=== PATIENT | male | born 1980 ===

== ENCOUNTER 2018-06-15 16:22 | Inpatient (IN) | payer OTHER, SELFPAY ==
[~2018-06-15 16:22] MED LIST: Calcium Chloride 1 GM/10 ML Abboject SYRINGE ONE; ISOVUE-370 76%-LOCM 1 ML ONE; PHENYLEPHRINE-NS 100 MCG/ML 10 ML SYRINGE ONE; Rocuronium Bromide 10 MG/ML (10ML VIAL) ONE; Sodium Bicarb 50 MEQ/50 ML VIAL ONE; ePHEDrine/0.9% NaCl/PF SYRINGE 50 mg/10 ml ONE
[2018-06-15] MEDS ORDERED: Fentanyl 100 MCG/2 ML VIAL ONE ×2 (16:33→18:50)
[2018-06-15] MEDS ORDERED: fentaNYL Citrate/PF 2,000 MCG in Sodium Chloride 0.9% 60 ML IV SCH ×2 (16:36→20:26)
[2018-06-15 16:43] LABS: Hemoglobin 13.4 g/dL (14.0-18.0); Mean Corpuscular HGB CONC 33.4 g/dL (32.0-36.0); Mean Corpuscular Hemoglobin 29.5 pg (27.0-31.0); Mean Corpuscular Volume 88.5 fL (78.0-98.0); Mean Platelet Volume 7.8 fL (7.4-10.4); Platelet Count 282 thou/uL (130-400); RBC Distribution Width 11.9 % (11.5-14.5); Red Blood Cell (RBC) Count 4.54 mill/uL (4.70-6.10); White Blood Cell (WBC) Count 25.3 thou/uL (4.8-10.8)
[2018-06-15 16:45] LABS: Actual Bicarbonate (HCO3a) 15.2 mEq/L (22-28); Analyzer IN Cardio ER; Calcium, Ionized 1.07 mmol/L (1.12-1.30); Carboxyhemoglobin (COHb) 0.3 gm% (0.0-3.0); Hemoglobin (Hb) 13.4 g/dL (14.0-18.0); O2 Tension (PaO2) 464.5 mmHg (80.0-100.0); Potassium - ABG Lab 4.53 mmol/L (3.70-5.30)
[2018-06-15 16:46] LABS: Puncture Site LFA; pH, Arterial 7.17 (7.35-7.45)
[2018-06-15 16:51] LABS: INR-International Normal Ratio 1.1; PTT 26.6 SEC (22.9-36.1); Prothrombin Time 14.4 SEC (12.0-14.7)
[2018-06-15 17:01] LABS: Band 21 % (5-11); Lymphocytes 16 % (21-51); MDiff Complete? YES; Monocytes 4 % (0-10); Neutrophil 57 % (42-75); Platelet Morphology Comment Appears Adequate; RBC Morphology Normal; Reactive Lymphocytes 2 % (0-10)
[2018-06-15 17:17] LABS: Bilirubin Negative (Negative); Blood, Urine Large (Negative); Clarity CLOUDY (Clear); Glucose, Urine (Dipstick) 100 mg/dL (Negative); Leukocyte Negative (Negative); Nitrite Negative (Negative); Protein, Urine (Dipstick) 100 mg/dL (Neg-Trace); Specific Gravity, Urine 1.015 (1.002-1.036)
[2018-06-15 17:18] LABS: Bacteria/HPF None Seen HPF (None Seen); RBC/HPF GREATER THAN 50-TNTC HPF (0-3)
[2018-06-15 17:20] LABS: ALT (SGPT) 194 U/L (8-55); AST (SGOT) 198 U/L (5-34); Albumin 3.9 g/dL (3.5-5.0); Alkaline Phosphatase 53 U/L (40-150); Anion Gap 19 mmol/L (10-20); BUN (Urea Nitrogen) 19 mg/dL (8.9-20.6); Bilirubin, Total 0.5 mg/dL (0.2-1.2); Calc. Creatinine Clearance 0 mL/min (70-130); Calcium 8.5 mg/dL (7.8-10.44); Carbon Dioxide 19 mmol/L (22-29); Chloride 106 mmol/L (98-107); Estimated GFR-MDRD 50; Globulin 2.4 g/dL (2.4-3.5); Glucose 234 mg/dL (70-105); Potassium 3.5 mmol/L (3.5-5.1); Protein, Total 6.3 g/dL (6.0-8.3); Sodium 140 mmol/L (136-145)
[2018-06-15 17:22] LABS: Pathc Cast-AUWi Flag 3.05 (0-2.49)
[2018-06-15 17:25] LABS: Amphetamine Not Detected (NotDetected); Barbiturates Screen Not Detected (NotDetected); Benzodiazepine Screen Not Detected (NotDetected); Cocaine Metabolite Screen Not Detected (NotDetected); Medtox Control Line Valid? VALID (VALID); Medtox Reader # READER 1; Methadone Not Detected (NotDetected); Methamphetamine Not Detected (NotDetected); Opiate Screen Not Detected (NotDetected); Oxycodone Screen Not Detected (NotDetected); Phencyclidine (PCP) Not Detected (NotDetected); THC/Cannabinoid Screen Detected (NotDetected); Tricyclic Screen Not Detected (NotDetected)
[2018-06-15 17:26] LABS: Crystals/HPF 1+ AMORPH PHOS HPF (Negative); Hyaline Casts/LPF 0-3 HYALINE CAST LPF (0-3 Hyaline); Other Casts/LPF None Seen LPF (0-3 Hyaline)
[2018-06-15] MEDS ORDERED: CEFAZOLIN 2 GM/50 ML BAG ONE (17:37)
[2018-06-15] MEDS ORDERED: Adacel (T-DAP) 0.5 ML SYRINGE ONE (17:37)
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
[2018-06-15 18:26] LABS: Lactic Acid 5.6 mmol/L (0.5-2.2)
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
[2018-06-15] MEDS ORDERED: Norepinephrine 8 MG/0.9% NS 0 ML ONE (18:50)
[2018-06-15] MEDS ORDERED: Phenylephrine HCL 10 MG/ML VIAL ONE ×2 (18:50→22:05)
[2018-06-15] MEDS ORDERED: Heparin 10,000 UNITS/1 ML VIAL ONE (19:01)
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
[2018-06-15] MEDS ORDERED: Heparin 5,000 UNITS/ML VIAL ONE (19:28)
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
--- NOTE | 2018-06-15 19:56 | RAD ---
PORTABLE UPRIGHT FRONTAL CHEST RADIOGRAPH: Date: 06-15-18 at 5:11 p.m. Comparison: 06-15-18 at 3:33 p.m. History: Evaluate chest tube. FINDINGS: Supine imaging limits assessment for free air, pneumothorax, and pleural fluid. The lung apices are n ot fully imaged on this exam. There is a left sided chest tube seen along the inferior aspect of the left hemithorax extending medi ally to overlying the left hilar shadow. Incompletely imaged vascular catheter is present on the righ t. Nasogastric tube seen in left upper quadrant. Please refer to recent CT examination of the chest for assessment of the osseous structures, which in cludes left sided 6th, 7th, 8th, and 9th rib fractures. IMPRESSION: Incomplete visualization of the lung apices. Lines and tubes as detailed above. POS: [facility]
[2018-06-15] MEDS ORDERED: Midazolam HCl 5 mg/5 ml Vial ONE (20:07)
[2018-06-15] MEDS ORDERED: Rib Fracture Protocol IV SCH (20:22)
[2018-06-15] MEDS ORDERED: Dextrose 5% in Water 1,000 ML IV PRN (20:22)
[2018-06-15] MEDS ORDERED: Ondansetron ODT 4 MG TAB PO PRN (20:22)
[2018-06-15] MEDS ORDERED: hydrALAZINE 20 MG/ML VIAL SLOW IVP PRN (20:22)
[2018-06-15] MEDS ORDERED: Ventilator Sedation Protocol 1 EACH FS SCH (20:22)
[2018-06-15] MEDS ORDERED: Sodium Chloride 0.9% 1,000 ML IV SCH (20:22)
[2018-06-15] MEDS ORDERED: Dextrose 50% Abboject 50 ML SYRINGE SLOW IVP PRN (20:22)
[2018-06-15] MEDS ORDERED: Ondansetron PF 4 MG/2 ML Vial IVP PRN (20:22)
[2018-06-15] MEDS ORDERED: Morphine 2 MG/ML SYRINGE SLOW IVP PRN (20:26)
[2018-06-15] MEDS ORDERED: DISCONTINUE PREVIOUS NARCOTIC PAIN MEDICATIONS AND BENZODIAZEPINES FS SCH (20:26)
[2018-06-15] MEDS ORDERED: Fentanyl BOLUS 250 ML IVPB PRN (20:26)
[2018-06-15] MEDS ORDERED: Propofol 1,000 MG/100 ML VIAL IV PRN (20:26)
[2018-06-15] MEDS ORDERED: Propofol BOLUS 1,000 MG/100 ML VIAL IV PRN (20:26)
[2018-06-15] MEDS ORDERED: Lorazepam 2 MG/ML VIAL SLOW IVP PRN (20:26)
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
[2018-06-15] MEDS ORDERED: Famotidine/PF 20 mg/2ml Vial SLOW IVP SCH (21:00)
--- NOTE | 2018-06-15 21:50 | RAD ---
RIGHT HUMERUS TWO VIEWS: Date: 06-15-18 Comparison: None. History: Injury, trauma, pain. FINDINGS: No displaced humerus fracture is seen on the right. The right shoulder and right elbow joints are not fully assessed. IMPRESSION: No displaced fracture. POS: [facility]
[2018-06-15] MEDS ORDERED: Papaverine 60 MG/2 ML VIAL ONE (21:57)
--- NOTE | 2018-06-15 22:07 | RAD ---
TWO VIEWS LEFT HUMERUS: Date: 06-15-18 Comparison: None. History: Injury, trauma, pain. FINDINGS: There is prominent soft tissue swelling in the left upper extremity and left axillary region. There i s a transverse fracture of the proximal left humeral shaft with 5 cm of lateral displacement of the d istal fracture fragment. IMPRESSION: Displaced proximal left humeral shaft fracture with prominent associated soft tissue swelling. POS: [facility]
--- NOTE | 2018-06-15 22:09 | RAD ---
TWO VIEWS LEFT SHOULDER: Date: 06-15-18 Comparison: None. History: Injury, trauma, pain. FINDINGS: There is a comminuted fracture in the region of the acromion. There is a fracture involving the scapu la in the region of the inferior glenoid. There is a displaced proximal humeral shaft fracture. Incom pletely imaged endotracheal tube and nasogastric tube. Please refer to CT examination of the chest al so performed 06-15-18 for full assessment. IMPRESSION: Multiple fracture deformities as detailed above, better assessed on recent CT exam. POS: [facility]
[2018-06-15] MEDS ORDERED: Rocuronium Bromide 50 MG/5 ML VIAL ONE (22:36)
--- NOTE | 2018-06-15 22:44 | OP ---
DATE OF PROCEDURE: 06/15/2018 PROCEDURE PERFORMED: Left chest tube thoracostomy. INDICATIONS: Left pneumothorax. DESCRIPTION OF PROCEDURE: After appropriate time-out, the patient was identified. The left chest was properly prepped and draped. The patient was on mechanical ventilator, sedated, so local was not necessary. Fifth intercostal space was identified in the anterior axillary line. Incision was made with a #10 blade, blunt dissection down to the pleural space, which was then entered. There was a moderate size ryan of air, at which time, a 32-Liberian tube was placed into the tunnel created, it was sutured in place with a 1-0 U-shaped suture secured with a petroleum gauze and taped in place, it was connected to suction and there was no noted air leak. The chest tube placement was then confirmed with chest radiograph that showed in a good position. The patient tolerated the procedure well and there was no blood loss. Job ID: [id number]
[2018-06-15] MEDS ORDERED: Sodium Bicarb 50 MEQ/50 ML Abboject 8.4% SYRINGE ONE (22:49)
[2018-06-15] MEDS ORDERED: Sodium Bicarbonate 150 MEQ in Sodium Chloride 0.45% 1,000 ML IV SCH (23:00)
[2018-06-15] MEDS ORDERED: Ketorolac Tromethamine 30 MG/ML VIAL IVP SCH (23:59)
[2018-06-15] MEDS ORDERED: Acetaminophen 650 MG Suppository PR SCH (23:59)
[2018-06-16] MEDS ORDERED: Calcium Chloride 1 GM/10 ML Abboject SYRINGE ONE (00:19)
[2018-06-16 01:10] VITALS: BMI 31.4
[2018-06-16 01:40] LABS: Actual Bicarbonate (HCO3a) 14.7 mEq/L (22-28); Base Excess (BEa) -11.8 mEq/L (-2.0 to +3.0); CO2 Tension 35.5 mmHg (35.0-45.0); Calcium, Ionized 1.12 mmol/L (1.12-1.30); Hemoglobin (Hb) 13.8 g/dL (14.0-18.0); O2 Tension (PaO2) 284.6 mmHg (80.0-100.0); Potassium - ABG Lab 5.65 mmol/L (3.70-5.30)
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
[2018-06-16 01:52] LABS: Hemoglobin 13.7 g/dL (14.0-18.0); Mean Corpuscular HGB CONC 34.7 g/dL (32.0-36.0); Mean Corpuscular Hemoglobin 31.4 pg (27.0-31.0); Mean Corpuscular Volume 90.7 fL (78.0-98.0); Mean Platelet Volume 8.1 fL (7.4-10.4); Platelet Count 116 thou/uL (130-400); RBC Distribution Width 12.3 % (11.5-14.5); Red Blood Cell (RBC) Count 4.37 mill/uL (4.70-6.10); White Blood Cell (WBC) Count 13.8 thou/uL (4.8-10.8)
[2018-06-16] MEDS ORDERED: Albumin 5% 500 ML ONE (01:59)
[2018-06-16 02:12] LABS: Anion Gap 13 mmol/L (10-20); BUN (Urea Nitrogen) 20 mg/dL (8.9-20.6); Calc. Creatinine Clearance 114 mL/min (70-130); Calcium 7.2 mg/dL (7.8-10.44); Carbon Dioxide 17 mmol/L (22-29); Chloride 119 mmol/L (98-107); Estimated GFR-MDRD 65; Glucose 158 mg/dL (70-105); Sodium 143 mmol/L (136-145)
[2018-06-16 02:27] LABS: Band 8 % (5-11); Lymphocytes 3 % (21-51); MDiff Complete? YES; Monocytes 6 % (0-10); Neutrophil 83 % (42-75); Platelet Morphology Comment Appears Adequate; Polychromasia SLIGHT = 2-3 cells (100X) (0-2/hpf); RBC Morphology Normal
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
[2018-06-16 02:35] LABS: pH, Arterial 7.24 (7.35-7.45)
[2018-06-16 02:36] LABS: ALV-art Gradient 98.825 (0-20); Puncture Site ALINE
[2018-06-16] MEDS ORDERED: Calcium Chloride 1 GM/10 ML Abboject SYRINGE IVP SCH ×2 (03:15→06:00)
[2018-06-16] MEDS ORDERED: Dextrose 50% Abboject 50 ML SYRINGE SLOW IVP PRN (03:50)
[2018-06-16] MEDS ORDERED: Dextrose 5% in Water 1,000 ML IV PRN ×2 (03:50→08:08)
[2018-06-16] MEDS ORDERED: Ondansetron ODT 4 MG TAB PO PRN (03:51)
[2018-06-16] MEDS ORDERED: hydrALAZINE 20 MG/ML VIAL SLOW IVP PRN (03:51)
[2018-06-16] MEDS ORDERED: Ondansetron PF 4 MG/2 ML Vial IVP PRN (03:52)
[2018-06-16] MEDS ORDERED: Propofol BOLUS 1,000 MG/100 ML VIAL IV PRN (03:53)
[2018-06-16] MEDS ORDERED: Morphine 2 MG/ML SYRINGE SLOW IVP PRN (03:53)
[2018-06-16] MEDS ORDERED: Lorazepam 2 MG/ML VIAL SLOW IVP PRN (03:53)
[2018-06-16] MEDS ORDERED: Propofol 1,000 MG/100 ML VIAL IV PRN (03:53)
[2018-06-16] MEDS ORDERED: Fentanyl BOLUS 250 ML IVPB PRN (03:54)
[2018-06-16] MEDS ORDERED: fentaNYL Citrate/PF 2,000 MCG in Sodium Chloride 0.9% 60 ML IV SCH (04:00)
[2018-06-16] MEDS ORDERED: DISCONTINUE PREVIOUS NARCOTIC PAIN MEDICATIONS AND BENZODIAZEPINES FS SCH (04:00)
[2018-06-16] MEDS ORDERED: Sodium Chloride 0.9% 1,000 ML IV SCH (04:00)
[2018-06-16] MEDS ORDERED: Rib Fracture Protocol IV SCH (04:00)
[2018-06-16] MEDS ORDERED: Ventilator Sedation Protocol 1 EACH FS SCH (04:00)
[2018-06-16] MEDS: Ketorolac Tromethamine 30 MG/ML VIAL IVP SCH ×2 (05:20→11:40)
[2018-06-16] MEDS: Acetaminophen 650 MG Suppository PR SCH ×2 (05:21→11:40)
[2018-06-16 05:24] LABS: Base Excess (BEa) -7.3 mEq/L (-2.0 to +3.0); Calcium, Ionized 1.09 mmol/L (1.12-1.30); Carboxyhemoglobin (COHb) 0.3 gm% (0.0-3.0); Hemoglobin (Hb) 10.9 g/dL (14.0-18.0); O2 Tension (PaO2) 163.5 mmHg (80.0-100.0); Potassium - ABG Lab 4.79 mmol/L (3.70-5.30); pH, Arterial 7.41 (7.35-7.45)
[2018-06-16 05:25] LABS: Puncture Site ALINE
[2018-06-16 05:35] LABS: Magnesium 1.6 mg/dL (1.6-2.6); Phosphorus 3.7 mg/dL (2.3-4.7)
[2018-06-16 05:36] LABS: Anion Gap 13 mmol/L (10-20); BUN (Urea Nitrogen) 21 mg/dL (8.9-20.6); Calc. Creatinine Clearance 117 mL/min (70-130); Carbon Dioxide 18 mmol/L (22-29); Chloride 117 mmol/L (98-107); Estimated GFR-MDRD 66; Glucose 166 mg/dL (70-105); Potassium 5.1 mmol/L (3.5-5.1); Sodium 143 mmol/L (136-145)
[2018-06-16 05:42] LABS: Band 10 % (5-11); Hemoglobin 10.6 g/dL (14.0-18.0); Hypochromia SLIGHT = 6-15 cells (100X) (0-5/hpf); Lymphocytes 12 % (21-51); MDiff Complete? YES; Mean Corpuscular HGB CONC 35.1 g/dL (32.0-36.0); Mean Corpuscular Hemoglobin 31.4 pg (27.0-31.0); Mean Corpuscular Volume 89.5 fL (78.0-98.0); Mean Platelet Volume 8.3 fL (7.4-10.4); Monocytes 4 % (0-10); Neutrophil 72 % (42-75); Platelet Count 75 thou/uL (130-400); Platelet Morphology Comment Appears Decreased; Polychromasia SLIGHT = 2-3 cells (100X) (0-2/hpf); RBC Distribution Width 12.3 % (11.5-14.5); Reactive Lymphocytes 2 % (0-10); Red Blood Cell (RBC) Count 3.39 mill/uL (4.70-6.10); White Blood Cell (WBC) Count 11.1 thou/uL (4.8-10.8)
[2018-06-16] MEDS ORDERED: Magnesium Sulfate 4 GM in Sodium Chloride 0.9% 250 ML 250 ML IVPB SCH (06:00)
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
[2018-06-16] MEDS ORDERED: Insulin Regular 300 UNITS/3 ML VIAL SC PRN (08:08)
[2018-06-16] MEDS ORDERED: Dextrose 50% Abboject 50 ML SYRINGE IVP PRN (08:08)
[2018-06-16 08:24] LABS: #Lymphocytes 1.8 thou/uL (1.20-3.40); #Monocytes 0.9 thou/uL (0.11-0.59); #Neutrophils 7.3 thou/uL (1.40-6.50); %Basophils 0.1 % (0.0-1.0); %Eosinophils 0.1 % (0.0-10.0); %Lymphocytes 18.1 % (21.0-51.0); %Monocytes 8.6 % (0.0-10.0); %Neutrophils 73.1 % (42.0-75.0); Mean Corpuscular HGB CONC 34.8 g/dL (32.0-36.0); Mean Corpuscular Hemoglobin 30.9 pg (27.0-31.0); Mean Corpuscular Volume 88.9 fL (78.0-98.0); Mean Platelet Volume 8.7 fL (7.4-10.4); Platelet Count 83 thou/uL (130-400); RBC Distribution Width 12.1 % (11.5-14.5); Red Blood Cell (RBC) Count 3.24 mill/uL (4.70-6.10)
[2018-06-16] MEDS: Sodium Chloride 0.45% 1,000 ML IV SCH ×2 (08:36→16:32)
[2018-06-16] MEDS: Famotidine/PF 20 mg/2ml Vial SLOW IVP SCH ×2 (08:36→20:42)
[2018-06-16 08:44] LABS: Anion Gap 14 mmol/L (10-20); BUN (Urea Nitrogen) 21 mg/dL (8.9-20.6); Calc. Creatinine Clearance 123 mL/min (70-130); Calcium 8.3 mg/dL (7.8-10.44); Carbon Dioxide 16 mmol/L (22-29); Chloride 116 mmol/L (98-107); Estimated GFR-MDRD 70; Glucose 158 mg/dL (70-105); Potassium 4.9 mmol/L (3.5-5.1); Sodium 141 mmol/L (136-145)
--- NOTE | 2018-06-16 08:56 | RAD ---
CHEST 1 VIEW: HISTORY: Dyspnea. Followup. COMPARISON: 06/15/2018. FINDINGS: Cardiac silhouette is magnified by projection. Pulmonary vasculature is unremarkable. Mediastinum i s midline. Endotracheal catheter tip overlies the thoracic inlet. Left thoracostomy tube and right subclavian central venous catheter remain in place. No pneumothorax is evident. Nasogastric tube de scends to the abdomen. groundwater monitoring technician leads overlie the chest. IMPRESSION: 1. Endotracheal catheter is in good radiographic position. 2. Otherwise, stable radiographic appearance of the chest. POS: [facility]
--- NOTE | 2018-06-16 09:12 | RAD ---
RIGHT WRIST TWO VIEWS INTRAOPERATIVE FLUOROSCOPY: History: Wrist fracture. FINDINGS/IMPRESSION: Intraoperative fluoroscopy is provided for placement of internal/external fixation devices at the sec ond metacarpal and the radial shaft, spanning the extensively comminuted intraarticular fractures of the distal radius and ulna. POS: [facility]
--- NOTE | 2018-06-16 09:19 | RAD ---
LEFT FOREARM 2 VIEWS: HISTORY: Fracture. Internal fixation. FINDINGS: Intraoperative fluoroscopy was provided for internal fixation of the mid radial shaft fracture by a l ravi compression plate and multiple screws. Alignment is anatomic. POS: [facility]
--- NOTE | 2018-06-16 09:22 | RAD ---
LEFT FEMUR INTRAOPERATIVE FLUOROSCOPY 2 VIEWS: HISTORY: Femur fracture. FINDINGS: Intraoperative fluoroscopy is provided for internal fixation. Spot fluoroscopic images show long med ullary deanna transfixing the comminuted femoral shaft fracture with minimal apex lateral angulation. POS: [facility]
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
--- NOTE | 2018-06-16 12:48 | OP ---
DATE OF PROCEDURE: 06/16/2018 PREOPERATIVE DIAGNOSES: 1. Arterial laceration with fracture of the left humerus and left radius. 2. Comminuted femoral shaft fracture, left. PROCEDURES PERFORMED: 1. Open reduction and internal fixation of the left proximal humerus after arterial repair. 2. Open reduction and internal fixation of the left distal radius. 3. Fasciotomy, left forearm. 4. Intramedullary fixation of the left femur. ASSISTANTS: Abdi. ESTIMATED BLOOD LOSS: Difficult to say blood due to the arterial laceration. DESCRIPTION OF PROCEDURE: Dr. Bullard explored the axilla and repaired the axillary artery. Then, I came in and I was actually able to repair the humerus through the medial approach. There was already an opening here, I was able to move my approach somewhat anterior to get away from the artery and exposed the proximal and distal aspects of the fracture. Fracture was reduced as well as possible with a degree of comminution and a 7-hole 4.5 DCP was placed with compression of the fractures. Findings of surgery did include several nerves completely disrupted at the brachial plexus. Attention was then turned to the distal radius. His forearm was very tight. I elected to go ahead and do a forearm fasciotomy and extended this down to a Boris approach. Irrigation was performed. The fracture was anatomically reduced. I placed a single 2.0 lag screw, they will hold it in place and neutralize the shortening forces. I then placed a 7-hole DCP small frag plate over the radius. I applied compression through several holes. I got an anatomic reduction with excellent compression of the fracture. Irrigation was performed. Dr. Bullard came in and checked the pulses with the Doppler, and the ulnar artery was working. After completion of the ORIF of both fractures, he closed the axilla. I loosely closed the skin of the forearm, and we rechecked the pulses and he still had a good dopplerable pulse at the ulnar artery. Radial artery was not dopplerable. Attention was then turned to the femur. The femur was prepped and draped in usual sterile fashion. I placed a bolster into the femur and reduced this as well as possible. This was comminuted to four or five pieces. I estimated rotation. I made a medial parapatellar arthrotomy. Dissection was carried down to the distal femur. I placed a guide pin and checked it with biplanar fluoroscopy. With the use of opening reamer, I placed a ball-tipped guidewire across the fracture and reamed to 13.5. I placed a 12 x 420 Synthes antegrade femoral nail across the fracture. I placed the distal locking screws. I then tapped the deanna to compress the fracture and placed a single proximal locking screw. Irrigation was performed. Biplanar imaging was taken, which showed appropriate reduction of the fracture, appropriate placement of hardware, and length of hardware. Puncture wounds for locking screws were closed with amie. Patellar tendon was repaired with #1 Vicryl, subcutaneous tissue was closed with 2-0 Vicryl, and the skin was closed with amie. There were no complications. PLAN: Postoperative plan is to place an external fixator on the right wrist. Job ID: [id number]
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
[2018-06-16 13:40] LABS: Actual Bicarbonate (HCO3a) 15.2 mEq/L (22-28); Analyzer IN Cardio OR; Base Excess (BEa) -12.9 mEq/L (-2.0 to +3.0); CO2 Tension 43.2 mmHg (35.0-45.0); Calcium, Ionized 1.06 mmol/L (1.12-1.30); Carboxyhemoglobin (COHb) 0.6 gm% (0.0-3.0); Hemoglobin (Hb) 13.4 g/dL (14.0-18.0); Potassium - ABG Lab 6.06 mmol/L (3.70-5.30)
[2018-06-16 13:40] LABS: Actual Bicarbonate (HCO3a) 19.6 mEq/L (22-28); Analyzer IN Cardio OR; Base Excess (BEa) -9.2 mEq/L (-2.0 to +3.0); CO2 Tension 57.1 mmHg (35.0-45.0); Calcium, Ionized 0.99 mmol/L (1.12-1.30); Carboxyhemoglobin (COHb) 0.6 gm% (0.0-3.0); Hemoglobin (Hb) 10.4 g/dL (14.0-18.0); Potassium - ABG Lab 4.23 mmol/L (3.70-5.30)
[2018-06-16 13:40] LABS: Actual Bicarbonate (HCO3a) 17.9 mEq/L (22-28); Analyzer IN Cardio OR; Base Excess (BEa) -8.4 mEq/L (-2.0 to +3.0); Calcium, Ionized 0.99 mmol/L (1.12-1.30); Carboxyhemoglobin (COHb) 0.6 gm% (0.0-3.0); Hemoglobin (Hb) 12.9 g/dL (14.0-18.0); O2 Tension (PaO2) 383.5 mmHg (80.0-100.0); Potassium - ABG Lab 5.71 mmol/L (3.70-5.30); pH, Arterial 7.27 (7.35-7.45)
[2018-06-16 14:38] LABS: Hemoglobin 9.4 g/dL (14.0-18.0)
[2018-06-16 14:39] LABS: pH, Arterial 7.15 (7.35-7.45)
[2018-06-16 14:40] LABS: O2 Tension (PaO2) 43.2 mmHg (80.0-100.0); Puncture Site ALINE
[2018-06-16 14:41] LABS: O2 Tension (PaO2) 590.7 mmHg (80.0-100.0); Puncture Site ALINE; pH, Arterial 7.17 (7.35-7.45)
[2018-06-16 14:42] LABS: Puncture Site ALINE
[2018-06-16] MEDS ORDERED: Promethazine HCl 25 MG/ML VIAL IM PRN (15:11)
[2018-06-16] MEDS ORDERED: diphenhydrAMINE 25 MG CAP PO PRN (15:11)
[2018-06-16] MEDS ORDERED: Zolpidem Tartrate 5 MG TAB PO PRN (15:11)
[2018-06-16] MEDS ORDERED: HYDROmorphone 10 mg/100 ml CADD IVPB PRN (15:11)
[2018-06-16] MEDS ORDERED: diphenhydrAMINE 50 MG/ML VIAL IVP PRN (15:11)
[2018-06-16] MEDS ORDERED: diphenhydrAMINE 50 MG/ML VIAL IM PRN (15:11)
[2018-06-16] MEDS ORDERED: Naloxone HCl 0.4 mg/ml Vial IV PRN (15:11)
[2018-06-16] MEDS ORDERED: Ketorolac Tromethamine 30 MG/ML VIAL IVP PRN (15:12)
[2018-06-16] MEDS ORDERED: Communication Order-Pharmacy FS SCH (15:15)
[2018-06-16] MEDS: Acetaminophen 500 MG TAB PO SCH ×2 (17:25→23:34)
[2018-06-16] MEDS ORDERED: Acetaminophen 325 MG TAB PO SCH (18:00)
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
[2018-06-17] MEDS: Sodium Chloride 0.45% 1,000 ML IV SCH ×2 (01:30→09:49)
[2018-06-17] MEDS: Acetaminophen 500 MG TAB PO SCH ×3 (06:08→17:36)
--- NOTE | 2018-06-17 07:09 | RAD ---
LEFT HUMERUS INTRAOPERATIVE FLUOROSCOPY: History: Arm fracture. FINDINGS/IMPRESSION: Intraoperative fluoroscopy was provided for internal fixation. Spot fluoroscopic images show compress ion side plate and screws transfixing the comminuted proximal humeral shaft fracture, in anatomic ali gnment. POS: JULITA
[2018-06-17] MEDS: Famotidine/PF 20 mg/2ml Vial SLOW IVP SCH ×2 (08:35→22:30)
--- NOTE | 2018-06-17 08:51 | RAD ---
CHEST 1 VIEW: Date: 06/17/18 HISTORY: Chest injury. Follow-up. COMPARISON: 06/16/18. FINDINGS: Cardiac silhouette is magnified by projection. Pulmonary vasculature has increased slightly with incr easing parenchymal opacity at each base. In addition, at the right medial lung base, a rounded densit y is now present, not explained by prior radiographic or CT findings. Endotracheal catheter and nasogastric tube are no longer visible. Other lines and tubes are unchanged in position. No evidence of pneumothorax. IMPRESSION: 1. Increasing bibasilar atelectasis with a new opacity at the right medial lung base. Somewhat mass- like configuration. This could be related to worsening atelectasis or contusion. Please consider clos e continued radiographic follow-up. 2. Interval removal of endotracheal catheter and nasogastric tube. POS: JULITA
[2018-06-17] MEDS: Senokot S 8.6-50 MG TAB PO SCH ×2 (09:14→22:31)
[2018-06-17] MEDS: Polyethylene Glycol 3350 17 GM Packet PO SCH (09:15)
[2018-06-17] MEDS: Enoxaparin Sodium 30 MG/0.3 ML SYRINGE SC SCH ×2 (09:15→22:36)
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
[2018-06-17] MEDS: Gabapentin 300 MG CAP PO SCH ×2 (14:49→22:31)
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
[2018-06-18] MEDS: Acetaminophen 500 MG TAB PO SCH ×2 (00:10→05:52)
[2018-06-18 07:23] LABS: #Lymphocytes 1.2 thou/uL (1.20-3.40); #Monocytes 0.5 thou/uL (0.11-0.59); #Neutrophils 6.2 thou/uL (1.40-6.50); %Basophils 0.1 % (0.0-1.0); %Eosinophils 0.6 % (0.0-10.0); %Lymphocytes 14.8 % (21.0-51.0); %Monocytes 6.5 % (0.0-10.0); Hemoglobin 7.1 g/dL (14.0-18.0); Mean Corpuscular HGB CONC 33.8 g/dL (32.0-36.0); Mean Corpuscular Hemoglobin 30.6 pg (27.0-31.0); Mean Corpuscular Volume 90.6 fL (78.0-98.0); Mean Platelet Volume 9.2 fL (7.4-10.4); Platelet Count 94 thou/uL (130-400); RBC Distribution Width 12.3 % (11.5-14.5); Red Blood Cell (RBC) Count 2.33 mill/uL (4.70-6.10)
[2018-06-18 07:31] LABS: Anion Gap 9 mmol/L (10-20); BUN (Urea Nitrogen) 11 mg/dL (8.9-20.6); Calc. Creatinine Clearance 187 mL/min (70-130); Calcium 8.3 mg/dL (7.8-10.44); Carbon Dioxide 25 mmol/L (22-29); Chloride 108 mmol/L (98-107); Estimated GFR-MDRD Greater than 90; Glucose 98 mg/dL (70-105); Magnesium 1.7 mg/dL (1.6-2.6); Sodium 138 mmol/L (136-145)
[2018-06-18 07:54] LABS: Phosphorus 1.6 mg/dL (2.3-4.7)
--- NOTE | 2018-06-18 08:10 | RAD ---
PORTABLE CHEST: HISTORY: Respiratory distress and chest tube evaluation. COMPARISON: 06/17/2018 study. FINDINGS: Heart size and mediastinum re within normal limits. Right subclavian line is unchanged in position. Left chest tube is present with the tip directed into the left apex. No pneumothorax seen. Atelect atic change in the left base appears improved. Some of the right infrahilar lung changes are stable. IMPRESSION: Essentially stable chest. Slight improvement to some of the parenchymal change in the left base. POS: JULITA
[2018-06-18] MEDS ORDERED: Potassium Phosphate 15 MMOL, Magnesium Sulfate 2 GM in Sodium Chloride 0.9% 250 ML 250 ML IVPB SCH (08:30)
[2018-06-18] MEDS ORDERED: Magnesium Sulfate 2 GM in Sodium Chloride 0.9% 100 ML IVPB SCH (08:30)
[2018-06-18] MEDS: Ascorbic Acid 500 mg Chewable Tablet PO SCH ×2 (09:22→15:50)
[2018-06-18] MEDS: Ferrous Sulfate 325 MG TAB PO SCH ×2 (09:23→15:50)
[2018-06-18] MEDS: Enoxaparin Sodium 30 MG/0.3 ML SYRINGE SC SCH ×2 (09:23→21:20)
[2018-06-18] MEDS: Gabapentin 300 MG CAP PO SCH ×3 (09:24→21:56)
[2018-06-18] MEDS: Polyethylene Glycol 3350 17 GM Packet PO SCH (09:24)
[2018-06-18] MEDS: Famotidine/PF 20 mg/2ml Vial SLOW IVP SCH (09:24)
[2018-06-18] MEDS: Senokot S 8.6-50 MG TAB PO SCH ×2 (09:24→21:54)
[2018-06-18] MEDS ORDERED: valACYclovir HCl 1 GM TAB PO SCH (10:00)
[2018-06-18] MEDS ORDERED: Acetaminophen 500 MG TAB PO SCH (10:00)
[2018-06-18] MEDS: traMADol HCl 50 MG TAB PO SCH ×3 (10:20→21:54)
[2018-06-18] MEDS: Acetaminophen 325 MG TAB PO SCH ×3 (10:20→23:48)
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
[2018-06-18] MEDS: HYDROcodone/Acetaminophen 7.5/325 mg Tablet PO PRN ×3 (12:51→23:38)
[2018-06-18] MEDS: valACYclovir 500 MG TAB PO SCH (12:51)
[2018-06-18] MEDS ORDERED: Melatonin 3 MG TAB PO PRN (15:19)
[2018-06-18] MEDS: Famotidine 20 MG TAB PO SCH (21:54)
[2018-06-19] MEDS: traMADol HCl 50 MG TAB PO SCH ×4 (04:16→22:11)
[2018-06-19] MEDS: Acetaminophen 325 MG TAB PO SCH ×4 (04:22→22:11)
[2018-06-19 06:41] LABS: Mean Corpuscular HGB CONC 34.2 g/dL (32.0-36.0); Mean Corpuscular Hemoglobin 30.9 pg (27.0-31.0); Mean Corpuscular Volume 90.3 fL (78.0-98.0); Mean Platelet Volume 8.1 fL (7.4-10.4); Platelet Count 121 thou/uL (130-400); RBC Distribution Width 12.5 % (11.5-14.5)
[2018-06-19 07:09] LABS: Anion Gap 11 mmol/L (10-20); BUN (Urea Nitrogen) 13 mg/dL (8.9-20.6); Calc. Creatinine Clearance 192 mL/min (70-130); Calcium 8.4 mg/dL (7.8-10.44); Carbon Dioxide 26 mmol/L (22-29); Chloride 106 mmol/L (98-107); Estimated GFR-MDRD Greater than 90; Glucose 90 mg/dL (70-105); Magnesium 1.8 mg/dL (1.6-2.6); Phosphorus 2.4 mg/dL (2.3-4.7); Potassium 3.9 mmol/L (3.5-5.1); Sodium 139 mmol/L (136-145)
[2018-06-19] MEDS: HYDROcodone/Acetaminophen 7.5/325 mg Tablet PO PRN ×3 (07:27→19:26)
[2018-06-19] MEDS ORDERED: Potassium Phosphate 30 MMOL, Magnesium Sulfate 2 GM in Sodium Chloride 0.9% 250 ML 250 ML IVPB SCH (08:30)
[2018-06-19] MEDS: Polyethylene Glycol 3350 17 GM Packet PO SCH (08:37)
[2018-06-19] MEDS: Gabapentin 300 MG CAP PO SCH ×3 (08:37→19:26)
[2018-06-19] MEDS: Ferrous Sulfate 325 MG TAB PO SCH ×2 (08:37→17:07)
[2018-06-19] MEDS: Senokot S 8.6-50 MG TAB PO SCH ×2 (08:37→19:23)
[2018-06-19] MEDS: Ascorbic Acid 500 mg Chewable Tablet PO SCH ×2 (08:37→17:07)
[2018-06-19] MEDS: Enoxaparin Sodium 30 MG/0.3 ML SYRINGE SC SCH ×2 (08:38→19:26)
[2018-06-19] MEDS: Famotidine 20 MG TAB PO SCH ×2 (08:38→19:26)
[2018-06-19] MEDS: Ibuprofen 600 MG TAB PO SCH ×3 (08:41→19:26)
--- NOTE | 2018-06-19 09:14 | RAD ---
PORTABLE CHEST: Date: 06/19/18 COMPARISON: 06/18/18 study. HISTORY: Left-sided chest tube removal. FINDINGS: Heart size within normal limits. Left chest tube has been removed. There is no left-sided pneumothora x. A right-sided pneumothorax is identified. Review of the previous 06/18/18 study does not definitiv natalie show that pneumothorax, but the film technique on that examination is suboptimal and may account for the fact it cannot be seen, but on the 06/17/18 study, I do in retrospect see a pneumothorax and feel it is slightly larger as compared to the prior exam. The density along the right heart border is stable. I am not certain whether this represents some atelectasis or some type of infiltrative proce ss in this area. It was not present on the 06/16/18 exam. IMPRESSION: 1. Moderate right-sided pneumothorax, which, in retrospect, appears increased as compared to the study. 2. Interval removal of left chest tube. I do not see any significant left-sided pneumothorax. 3. Persistent rounded opacity along the right heart border, probably on the basis of some type of at electasis or infiltrate. These findings were telephoned to Lexii, patient's nurse, at the time of this dictation. CODE CR. POS: OFF
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
[2018-06-20] MEDS: traMADol HCl 50 MG TAB PO SCH ×3 (03:08→15:49)
[2018-06-20] MEDS: Acetaminophen 325 MG TAB PO SCH ×3 (03:08→15:47)
[2018-06-20] MEDS: Famotidine 20 MG TAB PO SCH (08:01)
[2018-06-20] MEDS: Gabapentin 300 MG CAP PO SCH ×2 (08:01→15:47)
[2018-06-20] MEDS: Ferrous Sulfate 325 MG TAB PO SCH (08:01)
[2018-06-20] MEDS: Ascorbic Acid 500 mg Chewable Tablet PO SCH (08:01)
[2018-06-20] MEDS: Ibuprofen 600 MG TAB PO SCH ×2 (08:01→15:47)
[2018-06-20] MEDS: HYDROcodone/Acetaminophen 7.5/325 mg Tablet PO PRN ×2 (08:02→15:48)
[2018-06-20] MEDS: Polyethylene Glycol 3350 17 GM Packet PO SCH (08:08)
[2018-06-20] MEDS: Senokot S 8.6-50 MG TAB PO SCH (08:09)
--- NOTE | 2018-06-20 08:19 | RAD ---
PORTABLE CHEST: 06/20/2018 PROVIDED CLINICAL HISTORY: Pneumothorax. COMPARISON: 06/19/2018 FINDINGS: Persistent right-sided pneumothorax, similar to the prior study. Cardiac and mediastinal silhouette is unchanged in appearance. There is probable volume loss at the right lung base. The lungs appear otherwise clear. No evidence for left-sided pneumothorax. IMPRESSION: Stable right pneumothorax. POS: OFF
[2018-06-20 08:36] LABS: #Eosinphils 0.2 thou/uL (0.0-0.7); #Lymphocytes 1.2 thou/uL (1.20-3.40); #Monocytes 0.5 thou/uL (0.11-0.59); #Neutrophils 7.4 thou/uL (1.40-6.50); %Basophils 0.3 % (0.0-1.0); %Eosinophils 2.3 % (0.0-10.0); %Lymphocytes 12.5 % (21.0-51.0); %Monocytes 5.4 % (0.0-10.0); %Neutrophils 79.4 % (42.0-75.0); Hemoglobin 8.2 g/dL (14.0-18.0); Mean Corpuscular HGB CONC 32.4 g/dL (32.0-36.0); Mean Corpuscular Hemoglobin 29.4 pg (27.0-31.0); Mean Corpuscular Volume 90.7 fL (78.0-98.0); Platelet Count 176 thou/uL (130-400); RBC Distribution Width 12.5 % (11.5-14.5); White Blood Cell (WBC) Count 9.3 thou/uL (4.8-10.8)
[2018-06-20 09:06] LABS: Anion Gap 14 mmol/L (10-20); BUN (Urea Nitrogen) 13 mg/dL (8.9-20.6); Calc. Creatinine Clearance 218 mL/min (70-130); Calcium 8.4 mg/dL (7.8-10.44); Carbon Dioxide 24 mmol/L (22-29); Chloride 106 mmol/L (98-107); Estimated GFR-MDRD Greater than 90; Glucose 86 mg/dL (70-105); Phosphorus 3.5 mg/dL (2.3-4.7); Potassium 3.9 mmol/L (3.5-5.1); Sodium 140 mmol/L (136-145)
[2018-06-20] MEDS: Enoxaparin Sodium 30 MG/0.3 ML SYRINGE SC SCH (09:22)
[2018-06-20] MEDS: valACYclovir 500 MG TAB PO SCH (10:55)
[2018-06-20 15:53] VITALS: BP 152/88; TEMP 97.8
--- NOTE | 2018-06-21 13:28 | EKG ---
Test Reason : TRAUMA Blood Pressure : / mmHG Vent. Rate : 102 BPM Atrial Rate : 102 BPM P-R Int : 130 ms QRS Dur : 090 ms QT Int : 366 ms P-R-T Axes : 068 059 032 degrees QTc Int : 477 ms Sinus tachycardia Otherwise normal ECG Confirmed by NENITA LEON ([id number]), story editor PEDRO BARAJAS ([id number]) on 06/21/2018 1:27:39 PM Referred By: Confirmed By:NENITA LEON
== END 2018-06-20 16:30 | DRG 956 ==
LOC: ERS 16:22 → CCU 19:12 → ERS 19:12 → SDC 20:51 → CCU 20:52 → SJJU 06-17 19:53
PROVIDERS: ADMIT Surgery; ATTEND Surgery
PROC: 5A1945Z Respiratory Ventilation, 24-96 Consecutive Hours (ICD-10-PCS; principal; 2018-06-15)
PROC: 03Q Upper Arteries, Repair (ICD-10-PCS; 2018-06-15)
PROC: 05H533Z Insertion of Infusion Device into Right Subclavian Vein, Percutaneous Approach (ICD-10-PCS; 2018-06-15)
PROC: 0W9B30Z Drainage of Left Pleural Cavity with Drainage Device, Percutaneous Approach (ICD-10-PCS; 2018-06-15)
PROC: 30233N1 Transfusion of Nonautologous Red Blood Cells into Peripheral Vein, Percutaneous Approach (ICD-10-PCS; 2018-06-15)
PROC: 0QS906Z Reposition Left Femoral Shaft with Intramedullary Internal Fixation Device, Open Approach (ICD-10-PCS; 2018-06-16)
PROC: 0PSD04Z Reposition Left Humeral Head with Internal Fixation Device, Open Approach (ICD-10-PCS; 2018-06-16)
PROC: 0PSJ04Z Reposition Left Radius with Internal Fixation Device, Open Approach (ICD-10-PCS; 2018-06-16)
PROC: 0KNB0ZZ Release Left Lower Arm and Wrist Muscle, Open Approach (ICD-10-PCS; 2018-06-16)
PROC: 0PSHXZZ Reposition Right Radius, External Approach (ICD-10-PCS; 2018-06-16)
PROC: 0PSKXZZ Reposition Right Ulna, External Approach (ICD-10-PCS; 2018-06-16)
DX: S72.92XA Unspecified fracture of left femur, initial encounter for closed fracture (principal); S45.012 Laceration of axillary artery, left side; T79.4XXA Traumatic shock, initial encounter; J96.00 Acute respiratory failure, unspecified whether with hypoxia or hypercapnia; S02.11 Fracture of occiput; S42.302A Unspecified fracture of shaft of humerus, left arm, initial encounter for closed fracture; S52.501A Unspecified fracture of the lower end of right radius, initial encounter for closed fracture; S52.201A Unspecified fracture of shaft of right ulna, initial encounter for closed fracture; S52.92XA Unspecified fracture of left forearm, initial encounter for closed fracture; S27.0XXA Traumatic pneumothorax, initial encounter; D62 Acute posthemorrhagic anemia; S22.42XA Multiple fractures of ribs, left side, initial encounter for closed fracture; Y92.410 Unspecified street and highway as the place of occurrence of the external cause; I95.9 Hypotension, unspecified; V27.4XXA Motorcycle driver injured in collision with fixed or stationary object in traffic accident, initial encounter; E83.42 Hypomagnesemia; R33.9 Retention of urine, unspecified; S14.3XXA Injury of brachial plexus, initial encounter
CPT/HCPCS: 36415; 36416; 36430; 70450; 71045; 71260; 72125; 72170; 74177; 76000; 80048; 80053; 80306; 80307; 81003; 81015; 82150; 82805; 83605; 83735; 84100; 85025; 85027; 85610; 85730; 86850; 86900; 86901; 90715; 93005; 94002; 94640; 94760; C1713; C1769; G0390; J1644; J1650; J1885; J2250; J2370; J2405; J2440; J3010; J3475; J7050; J7620; P9016; P9045; P9048; S0028